=== PATIENT | male | born 1945 | race Caucasian/White ===

== ENCOUNTER 2024-10-26 21:18 | Inpatient (IN) | payer MEDICARE, SELFPAY ==
[2024-10-26] VITALS (8 sets, daily range): BP systolic 112–150; BP diastolic 46–69; PULSE 58–67; RESP 12–22; TEMP 36.4–36.7; O2SAT 95–99
--- NOTE | ~2024-10-26 | CT_ITS ---
CLINICAL HISTORY: Stroke Protocol Exam: CT head without intravenous contrast. Comparison: None. Findings: There is age-appropriate atrophy. The size and shape of the ventricular system is within normal limits for this degree of atrophy. Mild areas of low-attenuation are identified within the periventricular and deep white matter. Cummins-white differentiation is well preserved. No midline shift or mass effect. No intracranial hemorrhage. No calvarial fractures. Impression: No acute findings. Specifically, no hemorrhage or acute territorial infarct. This document has been electronically signed by: Scooter Sotelo MD on 10/26/2024 21:45:55
--- NOTE | ~2024-10-26 | MR_ITS ---
EXAMINATION: MR BRAIN WITHOUT CONTRAST CLINICAL INFORMATION: Acute CVA COMPARISON: CT brain performed 9:27 PM 10/26/2024. TECHNIQUE: MRI of the brain was obtained using routine sequences without contrast. FINDINGS: There is curvilinear restricted diffusion seen in the right luciana extending to right upper mid fibula with corresponding low signal on ADC map to suggest an acute ischemia. No additional areas of restricted diffusion seen. There is no magnetic susceptibility artifact seen to suspect hemorrhagic conversion. No magnetic susceptibility artifact seen to suspect any acute or chronic hemorrhagic products or calcium. There is scattered T2 FLAIR signal changes in the subcortical white matter both cerebral hemispheres without mass effect. The lateral ventricles are symmetrical in size and configuration and mildly enlarged. There is no extra-axial collection. Normal flow void signal seen in major cerebral vasculature. Bilateral paranasal sinuses and mastoid air cells are well-aerated. Optic globe, optic nerve and the periorbital soft tissues are normal. MR/MR head/brain wo con IMPRESSION: Acute nonhemorrhagic infarct right luciana extending to upper medulla oblongata. Chronic small vessel ischemic changes in the subcortical white matter of both cerebral hemispheres. Electronically signed by: Ulysses Garcia MD 10/27/2024 09:28 AM EST
--- NOTE | ~2024-10-26 | XR_ITS ---
CLINICAL HISTORY: Stroke Protocol 1 view chest x-ray Comparison: None Findings: The lungs are clear. Normal size heart. No acute fracture. IMPRESSION: 1. No acute findings. This document has been electronically signed by: Scooter Sotelo MD on 10/26/2024 23:12:56
--- NOTE | ~2024-10-26 | CT_ITS ---
CLINICAL HISTORY: Stroke Protocol Exam: 1. CT angiogram of the neck with intravenous contrast. 2. CT angiogram of the head with intravenous contrast. 3. CT head with intravenous contrast. Comparison: Noncontrast head CT from earlier today. Findings: CT angiogram neck: Bovine arch vascular variant anatomy. Visualized portion of the thoracic aorta is nonaneurysmal with minimal to mild vascular calcification. Dominant left vertebral artery. Both vertebral arteries are patent. However, the right vertebral artery is markedly diminutive along its far distal portion. No occlusive disease is seen. Common carotid arteries are patent. No flow-limiting stenosis within the proximal to mid internal carotid arteries. CT angiogram head: Basilar artery is patent. Appropriate contrast within the posterior cerebral arteries bilaterally. Distal internal carotid arteries are patent. Appropriate contrast within the middle cerebral arteries and anterior cerebral arteries bilaterally. No aneurysms. Miscellaneous findings: No enlarged lymph nodes. No air-fluid levels within the paranasal sinuses. Upper airway is patent. No apical pneumothorax. No acute fractures. CT head with intravenous contrast. No abnormal enhancement identified within the brain parenchyma. No leptomeningeal hyperenhancement. Dural venous sinuses are patent. Impression: 1. No large vessel occlusion or hemodynamically significant stenosis identified. 2. No abnormal enhancement within the brain parenchyma. This document has been electronically signed by: Scooter Sotelo MD on 10/26/2024 22:38:20
--- NOTE | 2024-10-26 21:22 | ED.NEUROSD ---
HPI - Neuro Symptoms/Deficit General Chief Complaint: Stroke Stated Complaint: stroke Time Seen by Provider: 10/26/24 21:22 Source: patient and EMS Mode of arrival: EMS Limitations: no limitations History of Present Illness ED Provider: HPI Narrative: Patient's history of diabetes, hypertension brought by EMS for been feeling balance since 19:00 fast test was negative per EMS around 19:00 patient was coming home and getting into the house was feeling off balance with slurred speech fed like words for rolling felt his left side is shaky and unsteady no headache no nausea no vomiting Related Data Allergies Allergy/AdvReac Type Severity Reaction Status Date / Time No Known Allergies Allergy Verified 10/26/24 21:49 Review of Systems Review of Systems: Yes all other systems are reviewed and are negative [facility] Past Medical History Medical History (Updated 10/27/24 @ 07:18 by Wilfrid Jett MD) Hyperlipidemia Diabetes mellitus Hypertension Social History Social History Smoked in Last 30 Days: No Use of substances other than those prescribed or required for medical reasons: No Advance Directives: No Advance Directives Information Provided: Yes Physical Exam Vital Signs: Vital Signs: Last Vital Signs Temp 97.6 F 10/27/24 05:31 Pulse 59 10/27/24 06:32 Resp 16 10/27/24 06:32 BP 101/44 L 10/27/24 06:32 Pulse Ox 97 10/27/24 06:32 O2 Del Method Room Air 10/27/24 06:32 BMI result Body Mass Index 30.0 Appearance: Alert. Oriented X3. No acute distress. Eyes: PERRLA, No Nystagmus ENT: Pharynx normal. Oral Mucosa moist Neck: Normal inspection. Neck supple. CVS: Normal heart rate and rhythm. Pulses normal. Respiratory: No respiratory distress. Equal air entry bilateral, no wheezing/rales/rhonchi Abdomen: Soft and nontender. Bowel sounds are present, no mass palpable, no CVA tenderness Skin: Skin warm and dry. Normal skin color. Normal skin turgor. Extremities: No lower extremity edema. No calf tenderness Neuro: Oriented X 3. No motor deficit. No sensory deficit. Intention tremor left arm , cranial nerves II-XII intact slow scanning speech Medications Administered Discontinued Medications Generic Name Dose Route Start Last Admin Trade Name Freq PRN Reason Stop Dose Admin Iohexol 85 ml 10/26/24 22:05 10/26/24 22:06 Iohexol 350 Mg/Ml 100 Ml Infus..Btl IV 10/26/24 22:06 85 ml ONCE ONE Administration Tenecteplase 20 mg 10/26/24 22:01 10/26/24 22:12 Tenecteplase 50 Mg/10 Ml Kit IVPUSH 10/26/24 22:02 20 mg ONCE ONE Administration Medical Decision Making Medical Decision Making [facility] Narrative: Patient with acute onset of been unsteady on his feet with scanning speech started at 19:00 CT head without contrast was negative for bleed CTA negative for LV 0 patient was started on TNK after discussion with Dr. Stovall for possible cerebellar stroke. No ICU bed available patient will stay in the ER till further evaluation by Dr. Stovall to downgrade to tele floor after 12 hours of TNK. No ICU bed available in [facility] patient has remained stable with stable vitals in the ER Patient is signed out to Dr. Mckeon for admission to tele floor after clearance by cutting Dr. Stovall Differential Diagnosis Differential Diagnoses: The differential diagnosis associated with the presentation includes CVA/TIAs /cerebellar stroke/posterior circulation stroke Admission/Observation Consideration of admission/observation: Escalation of care including admission/observation considered Consult Healthcare Provider Management of the patient was discussed with: Latex Caster Dr. stovall Lab Data [facility] Lab Attestation statement: I reviewed the patient's lab results. 10/26/24 22:02 10/26/24 22:02 Labs: Lab Results 10/26/24 10/26/24 Range/Units 21:21 22:02 WBC 6.7 (4.8-10.8) X10*3/uL RBC 4.33 L (4.60-5.80) X10*6/uL Hgb 13.0 L (14.0-18.0) g/dl Hct 37.6 L (42.0-52.0) % MCV 86.8 (80.0-98.0) fL MCH 30.0 (27.0-33.0) pg MCHC 34.6 (31.0-36.0) g/dl RDW 12.9 (11.0-16.0) % Plt Count 186 (160-400) X10*3/uL MPV 10.3 (9.4-12.4) fL Immature Gran % (Auto) 0.9 H (0.0-0.4) % Neut % (Auto) 63.3 (45-73) % Lymph % (Auto) 23.0 (20-40) % Glasscock % (Auto) 10.8 (2-11) % Eos % (Auto) 1.7 (0-4) % Baso % (Auto) 0.3 (0-2) % Lymph # (Auto) 1.5 (1.2-4.9) X10*3/uL Glasscock # (Auto) 0.7 (0.1-1.2) X10*3/uL Eos # (Auto) 0.1 (0.0-0.4) X10*3/uL Baso # (Auto) 0.0 (0.0-0.2) X10*3/uL Abs Immat Gran (auto) 0.06 H (0.00-0.03) X10*3/uL Absolute Neuts (auto) 4.2 (2.0-8.3) x10*3/uL Absolute Nucleated RBC 0.000 (0.0-0.012) X10*3/uL Nucleated RBC % (auto) 0.0 (0.0-0.2) /100WBC PT 11.3 (10.9-12.4) SEC INR 1.0 (0.9-1.1) APTT 31.1 (26.0-36.8) SEC Sodium 136 (135-145) mmol/L Potassium 4.3 (3.3-5.1) mmol/L Chloride 102 (96-108) mmol/L Carbon Dioxide 27 (22-29) mmol/L Anion Gap 11 L (12-20) BUN 31 H (9-16) mg/dL Creatinine 1.13 (0.5-1.4) mg/dL Estim Creat Clear Calc 53.0 Estimated GFR > 60 POC Glucose 279 H (60-115) mg/dL Random Glucose 260 H (60-115) mg/dL Calcium 9.0 (8.4-10.2) mg/dL Troponin I High Sens 4.7 (<3.5-35.0) ng/L Triglycerides 244 H (<150) mg/dL Cholesterol 209 H (<200) mg/dL LDL Cholesterol, Calc 121 H (<100) mg/dL HDL Cholesterol 40 L (>40) mg/dL Independent Interpretation I performed an independent interpretation of an: EKG and CT Scan Interpretation: Normal sinus rhythm left axis deviation right bundle-branch block LVH no acute ST-T no acute ischemia Radiology Impression Discussion of test interpretation with radiology: I have reviewed the radiologist's reading. Radiologist Impression: Close Chest X-Ray (Signed) Scooter Sotelo - 10/26/24 Head/Neck CTA (Signed) Scooter Sotelo - 10/26/[address] (Signed) Scooter Sotelo - 10/26/24 Launch?Image [address] [address] [address] Scan Report Signed Patient: Gee Cantrell MR#: [id number] : 1945 Acct:[id number] Age/Sex: 79 / M ADM Date: 10/26/24 Loc: .ED Attending Dr: Ordering Physician: Wilfrid Jett MD Date of Service: 10/26/24 Procedure(s): CT angio head neck STROKE Accession Number(s): [id number] cc: Wilfrid Jett MD~ Report Number: [id number]: Total DLP = 1616.00 mGy-cm CLINICAL HISTORY: Stroke Protocol Exam: 1. CT angiogram of the neck with intravenous contrast. 2. CT angiogram of the head with intravenous contrast. 3. CT head with intravenous contrast. Comparison: Noncontrast head CT from earlier today. Findings: CT angiogram neck: Bovine arch vascular variant anatomy. Visualized portion of the thoracic aorta is nonaneurysmal with minimal to mild vascular calcification. Dominant left vertebral artery. Both vertebral arteries are patent. However, the right vertebral artery is markedly diminutive along its far distal portion. No occlusive disease is seen. Common carotid arteries are patent. No flow-limiting stenosis within the proximal to mid internal carotid arteries. CT angiogram head: Basilar artery is patent. Appropriate contrast within the posterior cerebral arteries bilaterally. Distal internal carotid arteries are patent. Appropriate contrast within the middle cerebral arteries and anterior cerebral arteries bilaterally. No aneurysms. Miscellaneous findings: No enlarged lymph nodes. No air-fluid levels within the paranasal sinuses. Upper airway is patent. No apical pneumothorax. No acute fractures. CT head with intravenous contrast. No abnormal enhancement identified within the brain parenchyma. No leptomeningeal hyperenhancement. Dural venous sinuses are patent. Impression: 1. No large vessel occlusion or hemodynamically significant stenosis identified. 2. No abnormal enhancement within the brain parenchyma. This document has been electronically signed by: Scooter Sotelo MD on 10/26/2024 22:38:[address] [address] [address] Scan Report Signed with Addenda Patient: Gee Cantrell MR#: [id number] : 1945 Acct:[id number] Age/Sex: 79 / M ADM Date: 10/26/24 Loc: HO.ED Attending Dr: Ordering Physician: Wilfrid Jett MD Date of Service: 10/26/24 Procedure(s): CT head for STROKE Accession Number(s): [id number] cc: Wilfrid Jett MD~ Report Number: [id number]: Total DLP = 759.00 mGy-cm ADDENDUMThis document has been electronically signed by: Scooter Sotelo MD on 10/26/2024 21:45:55 ADDENDUM: This report was discussed with Wilfrid Jett on Oct 26, 2024 21:47:00 EST. This document has been electronically signed by: Elham Chacon on 10/26/2024 21:48:05 Addendum Dictated By: Scooter Sotelo MD Addendum Signed By: <Electronically signed by Scooter Sotelo MD in OV> 10/26/242148 Addendum Cosigned By: DD/ /19/2144 TD/TT: 10/26/2412/19/2147 CLINICAL HISTORY: Stroke Protocol Exam: CT head without intravenous contrast. Comparison: None. Findings: There is age-appropriate atrophy. The size and shape of the ventricular system is within normal limits for this degree of atrophy. Mild areas of low-attenuation are identified within the periventricular and deep white matter. Cummins-white differentiation is well preserved. No midline shift or mass effect. No intracranial hemorrhage. No calvarial fractures. Impression: No acute findings. Specifically, no hemorrhage or acute territorial infarct. This document has been electronically signed by: Scooter Sotelo MD on 10/26/2024 21:45:55 NIH Stroke Scale Internal: Initial- Upon Arrival Level of Consciousness: Alert Level of Consciousness Questions: Answers both questions correctly Level of Consciousness Commands: Performs both tasks correctly Best Gaze: Normal Visual: No visual loss Facial Palsy: Normal Motor Arm (Right): No drift Motor Arm (Left): No drift Motor Leg (Right): No drift Motor Leg (Left): No drift Limb Ataxia: Absent Sensory: Normal Best Language: No aphasia Dysarthia: Mild to moderate dysarthria Extinction and Inattention: No abnormality Score: 1 Critical Care Time Critical Care Time Critical Care Time: Yes Total Critical Care Time: 55 Attestation: The patient was critically ill with a high probability of imminent or life threatening deterioration. I spent greater than 60?minutes of discontinuous time evaluating the patient,delivering critical care at the bedside, discussing and evaluating pertinent data with consultants. Critical care time does not include time spent performing separately billable procedures or teaching. Total time spent performing critical care was 55???minutes. Discharge Plan Discharge Clinical Impression: Cerebrovascular accident Patient Disposition: Still a Patient Print Language: Mosotho
--- NOTE | 2024-10-26 21:23 | ECG_ITS ---
Test Reason : STROKE? Blood Pressure : / mmHG Vent. Rate : 066 BPM Atrial Rate : 066 BPM P-R Int : 224 ms QRS Dur : 148 ms QT Int : 428 ms P-R-T Axes : 059 -45 048 degrees QTc Int : 448 ms Sinus rhythm with 1st degree A-V block Left axis deviation Right bundle branch block Minimal voltage criteria for LVH, may be normal variant ( R in aVL ) Abnormal ECG No previous ECGs available Referred By: Wilfrid Jett Electronically Signed By:SHILA GARCIA MD
[2024-10-26 21:30] LABS: Glucose, Whole Blood 279 mg/dL (60-115)
--- NOTE | 2024-10-26 21:41 | MHC.EDTECH ---
EKG delayed due to patient being in CT scan
[2024-10-26] MEDS: iohexoL 350 MG/ML 100 ML INFUS..BTL 85 ML IV (22:06)
[2024-10-26 22:07] LABS: MANUAL DIFF FLAG NO
[2024-10-26 22:09] LABS: Basophils Percent Auto 0.3 % (0-2); Eosinophils Absolute Auto 0.1 X10*3/uL (0.0-0.4); Eosinophils Percent Auto 1.7 % (0-4); Hematocrit 37.6 % (42.0-52.0); Imm Gran Abs Auto 0.06 X10*3/uL (0.00-0.03); Imm Gran Pct Auto 0.9 % (0.0-0.4); Lymphocytes Absolute Auto 1.5 X10*3/uL (1.2-4.9); Mean Corpuscular HGB Conc 34.6 g/dl (31.0-36.0); Mean Corpuscular Volume 86.8 fL (80.0-98.0); Mean Platelet Volume 10.3 fL (9.4-12.4); Monocytes Absolute Auto 0.7 X10*3/uL (0.1-1.2); Monocytes Percent Auto 10.8 % (2-11); Neutrophils Absolute Auto 4.2 x10*3/uL (2.0-8.3); Neutrophils Percent Auto 63.3 % (45-73); Platelet Count 186 X10*3/uL (160-400); Red Blood Count 4.33 X10*6/uL (4.60-5.80); Red Cell Distribution Width 12.9 % (11.0-16.0); White Blood Count 6.7 X10*3/uL (4.8-10.8)
[2024-10-26] MEDS: Tenecteplase 50 MG/10 ML KIT 20 MG IVPUSH (22:12)
[2024-10-26 22:14] LABS: Prothrombin Time 11.3 SEC (10.9-12.4)
[2024-10-26 22:17] LABS: Partial Thromboplastin Time 31.1 SEC (26.0-36.8)
[2024-10-26 22:23] LABS: Anion Gap 11 (12-20); Blood Urea Nitrogen 31 mg/dL (9-16); Carbon Dioxide 27 mmol/L (22-29); Chloride 102 mmol/L (96-108); Cholesterol 209 mg/dL (<200); Estimated Glomerular Filt Rate > 60; Glucose Random 260 mg/dL (60-115); HDL Cholesterol 40 mg/dL (>40); LDL Cholesterol Calculated 121 mg/dL (<100); Potassium 4.3 mmol/L (3.3-5.1); Sodium 136 mmol/L (135-145); Triglycerides 244 mg/dL (<150)
[2024-10-26 22:25] LABS: Stroke Lab Use COMPLETE
[2024-10-26 22:29] LABS: Troponin-I High Sensitivity 4.7 ng/L (<3.5-35.0)
--- NOTE | 2024-10-26 23:56 | PC.NURSE ---
Pt biba from home with stroke alert. Pts LKW 10/26/2024 1900. Pt states he was walking down two steps when he suddenly felt unsteady, having trouble finding his words and felt like his words were rolling. Per pts he was not at his baseline. Upon EMS arrival pt was a&o x3, FAST test was negative and vital signs were 136/57, 67P, 18RR, 99% O2 RA, 350 POC. Pt received 100ml of NS during EMS transport. Pt denies any recent illness,traumas, headache, or nausea/vomitting. On arrival to the ED pts NIHSS score 1, BP 130/53, P 67, 15RR, 97 RA, 97.9F, 279 POC, GCS 15. Pt passed swallow eval, although he is complaining of a dry chronic cough that he has been having for 2-3 weeks (pt states he was recently started on lisinopril). Pt received 20mg of TNK. Pt has 18G field IV in LAC and 20G IV in RAC. Pt is a&o x3, able to make his needs known and using urinal/bedpan. is bedside. Imaging: Chest xray: IMPRESSION: 1. No acute findings head ct: Impression: No acute findings. Specifically, no hemorrhage or acute territorial infarct. head/neck cta: Impression: 1. No large vessel occlusion or hemodynamically significant stenosis identified. 2. No abnormal enhancement within the brain parenchyma.
[2024-10-27] VITALS (26 sets, daily range): BP systolic 101–137; BP diastolic 39–70; PULSE 55–66; RESP 14–21; TEMP 36.4–36.9; O2SAT 93–98; BMI 29.1
--- NOTE | 2024-10-27 05:56 | PC.NURSE ---
MRI form filled out and faxed over to MRI department. MRI form and fax confirmation in pt folder.
--- NOTE | 2024-10-27 07:23 | PC.NURSE ---
Pt alert and oriented this morning, having minimal word finding issues. Denies pain, SOB, CP. Reporting some weakness to left side, can move arm but having some slight weakness. Sinus ema on monitor
--- NOTE | 2024-10-27 07:55 | PC.NURSE ---
Pt was taken off unit to MRI
--- NOTE | 2024-10-27 11:51 | P.CNNE_ITS ---
History of Present Illness Data of Consult Service Date: 10/27/24 Primary Care Provider: Unknown Physician HPI Reason for consult: Stroke 79 years old man who was in usual state of health yesterday when he was walking and noted that he was unsteady. He was so unsteady that he dropped whenever he had in his hand thinking that he might fall down. He turned around went in in took a shower thinking that maybe he would get better. Symptoms did not improve. His speech was also affected like his tongue was curling up. Initially he resistant to come to emergency room but then called ambulance and was here and was diagnosed with acute ischemic stroke and appropriately treated with TNK. I saw him in emergency room. There was no complaint of nausea vomiting dizziness double vision and he was feeling much better now. Review of Systems 2 Review of Systems: No recent cold or flu-like illness PMFSH Past Medical History Medical History (Updated 10/27/24 @ 11:54 by Elizabeth Stovall MD) Hyperlipidemia Diabetes mellitus Hypertension Social History Social History Smoked in Last 30 Days: No Use of substances other than those prescribed or required for medical reasons: No Advance Directives: No Advance Directives Information Provided: Yes Meds Allergies Allergy/AdvReac Type Severity Reaction Status Date / Time No Known Allergies Allergy Verified 10/26/24 21:49 Active Medications: Current Medications Acetaminophen (Acetaminophen 325 Mg Tablet) 650 mg PO Q6H PRN PRN Reason: Pain, Mild 1-3,fever,headache Aspirin (Aspirin Enteric Coated 81 Mg Tablet.Dr) 81 mg PO Q24H CLAUDIO Atorvastatin Calcium (Atorvastatin Calcium 80 Mg Tablet) 80 mg PO BEDTIME CLAUDIO Calcium Carbonate (Calcium Carbonate 750 Mg Tab.Chew) 750 mg PO Q4H PRN PRN Reason: Heartburn Enoxaparin Sodium (Enoxaparin Sodium 40 Mg/0.4 Ml Syringe) 40 mg SUBCUT Q24H CLAUDIO Magnesium Hydroxide (Milk Of Magnesia 30 Ml Oral.Susp) 30 ml PO DAILY PRN PRN Reason: Constipation Melatonin (Melatonin 3 Mg Tablet) 6 mg PO BEDTIME PRN PRN Reason: Insomnia Sodium Chloride (0.9 % Sodium Chloride Flush 3 Ml Syringe) 3 ml IVFLUSH QSHIFT CLAUDIO Physical Exam 2 Vital Signs: Vital Signs: Last Vital Signs Temp 98.1 F 10/27/24 09:33 Pulse 60 10/27/24 11:42 Resp 18 10/27/24 11:42 BP 117/49 L 10/27/24 11:42 Pulse Ox 96 10/27/24 11:42 O2 Del Method Room Air 10/27/24 11:42 BMI result Body Mass Index 30.0 Neuro: Other: He is alert and awake with normal spontaneity of speech fluency comprehension and affect. Face is symmetrical. Visual rivero are full. There is no pronator drift. [id number] testing is normal. There is no focal weakness and arm or leg. Plantars are flexor. Results Labs 10/26/24 22:02 10/26/24 22:02 Labs: Short CBC 10/26/24 Range/Units 22:02 WBC 6.7 (4.8-10.8) X10*3/uL Hgb 13.0 L (14.0-18.0) g/dl Hct 37.6 L (42.0-52.0) % Plt Count 186 (160-400) X10*3/uL BMP 10/26/24 22:02 Sodium 136 Potassium 4.3 Chloride 102 Carbon Dioxide 27 BUN 31 H Creatinine 1.13 Calcium 9[address] did not reveal any significant abnormality. MRI of brain without contrast revealed mild hyperintensity in right side of luciana. Chronic microvascular ischemic changes were also noted. CTA of brain and neck did not reveal any significant abnormality. Assessment and Plan (1) Cerebrovascular accident: Qualifiers: CVA mechanism: unspecified Qualified Code(s): I63.9 - Cerebral infarction, unspecified Status: Acute 79 years old man with acute right pontine ischemic infarction appropriately treated with TNK. I believe most of the damage was averted. My recommendations are to start him on baby aspirin and clopidogrel 75 mg daily after 24 hours of TNK with statin and attention to blood pressure control. Cardiac monitoring should also be performed to rule out atrial fibrillation as he has multiple small bilateral ischemic lesions that could be embolic in nature. Procedures Date of Service Date of Service: 10/27/24
--- NOTE | 2024-10-27 11:51 | P.HPHOSP_ITS ---
History of Present Illness Date of Service: 10/27/24 Chief Complaint: Unsteady 79M PMH diabetes, hypertension, mood presented with sudden feeling of being off balanced at 19:00 on 10/26/2024. Also noted slurred speech and felt like he was going to fall. Did not notice 1 side we could then other specifically. was concerned for stroke so called EMS. In ED CT head negative CTA negative was given TNK at about 22:00. MRI showed acute nonhemorrhagic infarct of the right luciana extending to upper medulla oblongata. Was seen by Neurology who recommended 12 hour monitoring and ED and then admission to [facility] floor for q4 hour neuro checks. Review of Systems 2 Review of Systems: Yes all other systems are reviewed and are negative [facility] Medical History Hyperlipidemia Diabetes mellitus Hypertension Social History Smoked in Last 30 Days: No Use of substances other than those prescribed or required for medical reasons: No Advance Directives: No Advance Directives Information Provided: Yes [facility] Allergies Allergy/AdvReac Type Severity Reaction Status Date / Time No Known Allergies Allergy Verified 10/26/24 21:49 Active Medications: Current Medications Acetaminophen (Acetaminophen 325 Mg Tablet) 650 mg PO Q6H PRN PRN Reason: Pain, Mild 1-3,fever,headache Aspirin (Aspirin Enteric Coated 81 Mg Tablet.Dr) 81 mg PO Q24H CLAUDIO Atorvastatin Calcium (Atorvastatin Calcium 80 Mg Tablet) 80 mg PO BEDTIME CLAUDIO Calcium Carbonate (Calcium Carbonate 750 Mg Tab.Chew) 750 mg PO Q4H PRN PRN Reason: Heartburn Enoxaparin Sodium (Enoxaparin Sodium 40 Mg/0.4 Ml Syringe) 40 mg SUBCUT Q24H CLAUDIO Magnesium Hydroxide (Milk Of Magnesia 30 Ml Oral.Susp) 30 ml PO DAILY PRN PRN Reason: Constipation Melatonin (Melatonin 3 Mg Tablet) 6 mg PO BEDTIME PRN PRN Reason: Insomnia Sodium Chloride (0.9 % Sodium Chloride Flush 3 Ml Syringe) 3 ml IVFLUSH QSHIFT [facility] Physical Exam 2 Vital Signs and Narrative: Vital Signs: Last Vital Signs Temp 98.1 F 10/27/24 09:33 Pulse 60 10/27/24 11:42 Resp 18 10/27/24 11:42 BP 117/49 L 10/27/24 11:42 Pulse Ox 96 10/27/24 11:42 O2 Del Method Room Air 10/27/24 11:42 BMI result Body Mass Index 30.0 General: AO X 3, no acute distress Resp: CTA bilateral, no accessory muscles used CVS: S1,S2,RRR GI: soft, non tender, non distended Neuro: Mild left hemiparesis and left facial, mild dysarthria Psych: appropriate affect, appropriate insight Results Labs 10/26/24 22:02 10/26/24 22:02 Labs: Laboratory Results - last 24 hr 10/26/24 10/26/24 21:21 22:02 MCV 86.8 MCH 30.0 MCHC 34.6 RDW 12.9 Plt Count 186 MPV 10.3 Immature Gran % (Auto) 0.9 H Neut % (Auto) 63.3 Lymph % (Auto) 23.0 Morrill % (Auto) 10.8 Eos % (Auto) 1.7 Baso % (Auto) 0.3 Lymph # (Auto) 1.5 Morrill # (Auto) 0.7 Eos # (Auto) 0.1 Baso # (Auto) 0.0 Abs Immat Gran (auto) 0.06 H Absolute Neuts (auto) 4.2 Absolute Nucleated RBC 0.000 Nucleated RBC % (auto) 0.0 PT 11.3 INR 1.0 APTT 31.1 Anion Gap 11 L Estim Creat Clear Calc 53.0 Estimated GFR > 60 POC Glucose 279 H Random Glucose 260 H Calcium 9.0 Troponin I High Sens 4.7 Triglycerides 244 H Cholesterol 209 H LDL Cholesterol, Calc 121 H HDL Cholesterol 40 L Imaging Radiologist's Impressions: Impressions Brain MRI 10/27/24 08:00 IMPRESSION: Acute nonhemorrhagic infarct right luciana extending to upper medulla oblongata. Chronic small vessel ischemic changes in the subcortical white matter of both cerebral hemispheres. 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
--- NOTE | 2024-10-27 12:30 | PHA.MEDREC ---
Pharmacy Consult ? Medication Reconciliation Pharmacy has completed the medication reconciliation. Spoke to patient and confirmed medication list. Patient said he has been experiencing a chronic cough (tickles in the back of his throat) for about 2-3 weeks and think it may be due to the lisinopril. Message was relayed to Dr. Garcia. Last dose of medications was yesterday 10/26/24.
--- NOTE | 2024-10-27 13:00 | CA_ITS ---
Transthoracic Echocardiogram Patient (Last, First, Middle): Gee Cantrell, Gender: Male Date of : 1945 Age: 79 Procedure Date: 10/27/2024 Procedure Type: Transthoracic Echocardiogram Location: ER Height: 165.1 cm Weight: 81.65 kg BSA: 1.89 m2 Heart Rate: 60 bpm BP: 121 / 38 mmHg [place] Sander: TOMY Cerda MD: Rosalio Garcia MD Telephone Supervisor: Alexander Diggs MD Symptoms: stroke Study Quality: Fair ECG Rhythm: Sinus Conclusions: - 1. Hyperdynamic LV EF of greater than 70% 2. Mild calcific changes noted on the aortic valve with normal cardiac valvular Doppler 3. Mildly dilated ascending aorta at 3.8 cm 4. No gross pericardial effusion Findings Left Ventricle Normal left ventricular cavity size. There is normal left ventricular wall thickness. The left ventricular systolic function is hyperdynamic. The visually estimated ejection fraction is >70%. Spectral Doppler is indicative of an impaired relaxation filling pattern. Right Ventricle Normal right ventricular cavity size and systolic function. Atria The left atrium is normal in size. Interatrial shunt cannot be excluded. The right atrium was not well visualized. Aortic Valve There is mild calcification of the aortic valve. There is no aortic valve stenosis. There is mild aortic valve regurgitation. Mitral Valve The mitral valve was not well visualized. There is trace mitral valve regurgitation. There is no mitral valve stenosis. Pulmonic Valve The pulmonic valve was not well visualized. Tricuspid Valve Likely normal tricuspid valve structure and function. Tricuspid regurgitation envelope is inadequate for calculation of right ventricular systolic pressure. Normal right atrial pressure. Great Vessels The aorta was not well visualized. The pulmonary artery was not well visualized. There is mild dilatation of the ascending aorta measuring 3.80 cm. Venous The inferior vena cava is normal in size. Pericardium/Pleural There is no evidence of pericardial effusion. Prior Study Comparison No prior study available for comparison. Measurements 2D Linear Measurements IVSd: 0.80 0.6-0.9/0.6-1.0 cm LVIDd: 4.17 3.9-5.3/4.2-5.9 cm LVIDd Index: 2.21 2.4-3.2/2.2-3.1 cm/m2 LVIDs: 2.14 2.0-3.6 cm LVPWd: 0.94 0.7-1.1 cm LA Diam: 3.00 2.7-3.8/3.0-4.0 cm LAIDs Index: 1.59 1.5-2.3 cm/m2 LV Mass: 139.16 67-162/88-224 g LV Mass Index: 73.63 43-95/49-115 g/m2 LVOT Diam: 2.10 3.0+(-)1.3 cm 2D Systolic Function EF 4C: 74.90 >55% EF 2C: 71.40 >55% EF BiP: 73.40 >55% Mitral Valve MV Pk E: 0.57 MV PK A: 0.68 MV Decel Time: 279.00 E/A: 0.80 E'Lateral: 9.68 E'Medial: 6.42 E/E' Med: 8.80 E/E' Lat: 5.80 PHT: 82.00 MVA PHT: 2.68 Decel [place]: 2.03 Aortic Valve AoV Pk Frank[place]: 1.38 AoV Mn Frank[place]: 0.98 AoV VTI: 0.28 AoV Pk Grad: 8.00 Aov Mn Grad: 4.00 DORA Cont.VTI: 2.02 LVOT LVOT Pk [place]: 0.86 LVOT Mn [place]: 0.59 LVOT VTI: 0.16 LVOT Pk Grad: 3.00 LVOT Mn Grad: 2.00 LVOT Diam: 2.10 LVOT Area: 3.46 Diastolic Function MV Pk E: 0.57 MV Pk A: 0.68 E/A: 0.80 E'Medial: 6.42 E/E' Med: 8.80 E' Laterial: 9.68 E/E' Lat: 5.80 Right Ventricle TAPSE (mm): 18.40 TVS' Franklyn: 9.25 Tricuspid Valve RA Press: 3.00 Great Vessels Aorta Sinus of Valsalva: 3.50 2.0-3.5 cm Ao Asc: 3.80 2.1-3.4 cm Pulmonary Valve PV Pk Franklyn: 1.00 Peak PV Grad: 4.00 Updated in Other Vendor System with Status of Final Alexander Diggs MD electronically signed on 10/27/2024 2:39:47 PM with status of Final
[2024-10-27 13:18] LABS: Glucose, Whole Blood 194 mg/dL (60-115)
[2024-10-27 14:28] LABS: Prothrombin Time Whole Bld POC 12.2 sec (11.1-13.5)
--- NOTE | 2024-10-27 15:17 | MHC.SP.ADU ---
Referring provider: Rosalio Garcia MD Reason for Referral: R-CVA Type of Treatment: 33545 Clinical Swallowing Evaluation Date of Plan of Treatment: 10/27/24 Onset of Symptoms/Illness: 10/26/24 Date Treatment Started: 10/27/24 Medical Diagnosis: CVA Primary Speech Language Diagnosis: R13.12 Oropharyngeal Phase Dysphagia History Pt is a 79 year-old Male who experience loss of balance and slurred speech around 19:00. He was in the ED and received TNK at 22:00 with rapid improvement. He continues to endorse mildly slurred speech and that, my left leg feels shorter that my right leg. Medical History: Other: HLD DM2 HTN Medication List: Recent Hospitalizations: No Respiratory Needs: Room Air Patient Orientation: Alert & Oriented x 4 Social History: Employment Status: Retired Highest level of education obtained: Current Living Situation: Home with and Child Assistive Devices in use: Comment: Past Speech Language Therapy: None Other Therapies Seen in Current Calendar Year: None Other: Swallowing History: Dysphagia Specific: Within Functional Limits Comments: Pre-eval Risk for Aspiration: None Pre-evaluation Dietary Consistencies: Regular Pre-eval Liquid Intake: Thin Pre-eval Medication Intake: Whole with Liquid Reported Speech, Language, Cognition difficulties: Comments: Quality of Life: Patient Stated Goal of Speech-Language Therapy: Assessment Speech Production: Within Functional Limits Clinical Impression: Intact Observations: Follow-up for disposition recommendations. Informal Voice Assessment: Voice Loudness: Normal Voice Nasal Resonance: Voice Oral Resonance: Voice Phonatory-based Quality: Normal Voice Pitch: Normal Voice Other Observations: Clinical Impression: Intact Clinicial Observations: Tests of Speech & Lang Adults: Clinical Impression: Did Not Test Observations: Tests of Cognition: Clinical Impression: Did Not Test Observations: Augmentative and Alternative Communication: Did Not Test Observations: Impressions and Recommendations Summary: Impact on Daily Function/Activity Limitations: Daily Activities: None Interpersonal Interactions: None Education: None Employment: None Community: None Prognosis for Improvement: Excellent Comment: Recommendation for Speech Therapy: NA:Typical Evaluation Frequency/Duration: Date Range for Service Requested: Time to Reassess: PRN Correction Goals: Short Term Goals: Goal # : STG1: On going diagnostic treatment during inpatient stay. Goal Status: New Goal Recommended Referrals to be Discussed with Primary Care Provider: Neurology Patient Education: Completed: Yes Patient/Caregiver Education: Patient expressed understanding of evaluation Patient agrees with goals and treatment plan Patient understands results but refuses treatment Family/Caregivers expressed understanding of results Family/Caregivers expressed agreement with goals and treatment plan Caustic Preparer Clinican/Clinical Fellow: No Supervisory Statement: N/A Speech Language Pathologist: Husam Ferreira M.A., [facility]3]-FUNERAL HOME ASSOCIATE
[2024-10-27 17:33] LABS: Glucose, Whole Blood 231 mg/dL (60-115)
[2024-10-27] MEDS: 0.9 % Sodium Chloride Flush 3 ML SYRINGE IVFLUSH ×2 (17:38→22:33)
[2024-10-27] MEDS: Insulin Lispro 100 UNIT/ML 3 ML VIAL SUBCUT ×2 (17:38→20:32)
[2024-10-27 20:30] LABS: Glucose, Whole Blood 176 mg/dL (60-115)
[2024-10-27] MEDS: Atorvastatin Calcium 80 MG TABLET PO (20:33)
[2024-10-27] MEDS: Enoxaparin Sodium 40 MG/0.4 ML SYRINGE SUBCUT (22:29)
[2024-10-27] MEDS: Aspirin Enteric Coated 81 MG TABLET.DR PO (22:30)
[2024-10-28 03:40] VITALS: BP 136/68; PULSE 60; RESP 18; TEMP 36.3; O2SAT 95
[2024-10-28 06:23] LABS: Hematocrit 41.1 % (42.0-52.0); Hemoglobin 13.7 g/dl (14.0-18.0); Mean Corpuscular HGB Conc 33.3 g/dl (31.0-36.0); Mean Corpuscular Hemoglobin 29.4 pg (27.0-33.0); Mean Corpuscular Volume 88.2 fL (80.0-98.0); Mean Platelet Volume 10.7 fL (9.4-12.4); Platelet Count 185 X10*3/uL (160-400); Red Blood Count 4.66 X10*6/uL (4.60-5.80); Red Cell Distribution Width 13.1 % (11.0-16.0); White Blood Count 7.8 X10*3/uL (4.8-10.8)
[2024-10-28 06:37] LABS: Anion Gap 15 (12-20); Blood Urea Nitrogen 27 mg/dL (9-16); Calcium 9.2 mg/dL (8.4-10.2); Carbon Dioxide 24 mmol/L (22-29); Chloride 107 mmol/L (96-108); Creatinine Clr Calc Pharmacy 55.7; Estimated Glomerular Filt Rate > 60; Glucose Random 209 mg/dL (60-115); Potassium 3.8 mmol/L (3.3-5.1); Sodium 142 mmol/L (135-145)
[2024-10-28 07:20] LABS: Glucose, Whole Blood 201 mg/dL (60-115)
[2024-10-28 07:25] VITALS: BP 124/66; PULSE 58; RESP 14; TEMP 36.9; O2SAT 96
[2024-10-28] MEDS: Cholecalciferol (Vitamin D3) 25 MCG TABLET PO (09:02)
[2024-10-28] MEDS: Insulin Lispro 100 UNIT/ML 3 ML VIAL SUBCUT ×2 (09:02→13:04)
[2024-10-28] MEDS: Clopidogrel Bisulfate 75 MG TABLET PO (09:02)
[2024-10-28] MEDS: PARoxetine HCL 20 MG TABLET PO (09:02)
[2024-10-28] MEDS: 0.9 % Sodium Chloride Flush 3 ML SYRINGE IVFLUSH (09:03)
--- NOTE | 2024-10-28 09:54 | HO.PM.IMPN ---
Subjective Subjective Date of Service: 10/28/24 Interval History: some ataxia, dysarthria Physical Exam Vital Signs: Vital Signs: Last Vital Signs Temp 98.4 F 10/28/24 07:25 Pulse 58 10/28/24 07:25 Resp 14 10/28/24 07:25 BP 124/66 10/28/24 07:25 Pulse Ox 96 10/28/24 07:25 O2 Del Method Room Air 10/28/24 07:25 BMI result Body Mass Index 29.1 Neuro: Other: He is alert and awake with normal spontaneity of speech fluency comprehension and affect. Face is symmetrical. Visual rivero are full. There is no pronator drift. Bfnkgj-vi-[id number] testing is normal. There is no focal weakness and arm or leg. Plantars are flexor. Objective Data Active Medications Acetaminophen (Acetaminophen 325 Mg Tablet) 650 mg PO Q6H PRN PRN Reason: Pain, Mild 1-3,fever,headache Aspirin (Aspirin Enteric Coated 81 Mg Tablet.) 81 mg PO Q24H [facility] Last Admin: 10/27/24 22:30 Dose: 81 mg Documented By: ADA Atorvastatin Calcium (Atorvastatin Calcium 80 Mg Tablet) 80 mg PO BEDTIME [facility] Last Admin: 10/27/24 20:33 Dose: 80 mg Documented By: ADA Calcium Carbonate (Calcium Carbonate 750 Mg Tab.Chew) 750 mg PO Q4H PRN PRN Reason: Heartburn Clopidogrel Bisulfate (Clopidogrel Bisulfate 75 Mg Tablet) 75 mg PO DAILY [facility] Last Admin: 10/28/24 09:02 Dose: 75 mg Documented By: AGUEDA Enoxaparin Sodium (Enoxaparin Sodium 40 Mg/0.4 Ml Syringe) 40 mg SUBCUT Q24H [facility] Last Admin: 10/27/24 22:29 Dose: 40 mg Documented By: ADA Glucose (Glucose Gel 15 Gm Gel..Gram.) 15 gm PO Q15M PRN; Protocol PRN Reason: per Hypoglycemia Standing Ord. Dextrose (D10) 250 mls @ 750 mls/hr IV Q15M PRN; Protocol PRN Reason: per Hypoglycemia Standing Ord. Insulin Human Lispro (Insulin Lispro 100 Unit/Ml 3 Ml Vial) 0 unit SUBCUT QIDACHS [facility]; Protocol Last Admin: 10/28/24 09:02 Dose: 4 unit Documented By: AGUEDA Magnesium Hydroxide (Milk Of Magnesia 30 Ml Oral.Susp) 30 ml PO DAILY PRN PRN Reason: Constipation Melatonin (Melatonin 3 Mg Tablet) 6 mg PO BEDTIME PRN PRN Reason: Insomnia Paroxetine HCl (Paroxetine Hcl 20 Mg Tablet) 20 mg PO DAILY [facility] Last Admin: 10/28/24 09:02 Dose: 20 mg Documented By: AGUEDA Sodium Chloride (0.9 % Sodium Chloride Flush 3 Ml Syringe) 3 ml IVFLUSH QSHIFT [facility] Last Admin: 10/28/24 09:03 Dose: 3 ml Documented By: AGUEDA Vitamin D (Cholecalciferol (Vitamin D3) 25 Mcg Tablet) 25 mcg PO DAILY [facility] Last Admin: 10/28/24 09:02 Dose: 25 mcg Documented By: AGUEDA Labs 10/28/24 05:48 10/28/24 05:48 Labs: Laboratory Results - last 24 hr 10/26/24 10/27/24 10/27/24 21:23 13:13 17:25 MCV MCH MCHC RDW Plt Count MPV Absolute Nucleated RBC Nucleated RBC % (auto) Whole Blood PT 12.2 Whole Blood INR 1.0 Anion Gap Estim Creat Clear Calc Estimated GFR POC Glucose 194 H 231 H Random Glucose Calcium 10/27/24 10/28/24 10/28/24 20:26 05:48 07:15 MCV 88.2 MCH 29.4 MCHC 33.3 RDW 13.1 Plt Count 185 MPV 10.7 Absolute Nucleated RBC 0.000 Nucleated RBC % (auto) 0.0 Whole Blood PT Whole Blood INR Anion Gap 15 Estim Creat Clear Calc 55.7 Estimated GFR > 60 POC Glucose 176 H 201 H Random Glucose 209 H Calcium 9.2 Assessment and Plan (1) Cerebrovascular accident: Status: Acute Plan 9M PMH diabetes, hypertension, mood presented with sudden feeling of being off balanced Acute CVA Status post TNK 22:00 on 10/26/2024 neuro appreciated - continue DAPL, statin, will likely need outpatient loop/holter to rule out afib echo unremarkable PT/OT recommending acute rehab prostate ca outpatient follow up dm insulin htn permissive htn mood disorder paxil dvt prophylaxis - lovenox full code reason for continued hospitalization:awaiting rehab Quality Stroke Does the patient have a stroke diagnosis?: Yes Reason for No Anti-thrombotic by Day Two: N/A - Med Ordered VTE Prior VTE?: No VTE Risk Level:: Medical - moderate - high VTE Device Contraindication: Treatment Not Indicated VTE Drug Contraindication: N/A - Med Ordered
[2024-10-28 11:23] VITALS: BP 140/64; PULSE 71; RESP 16; TEMP 37.6; O2SAT 96
[2024-10-28 11:30] LABS: Glucose, Whole Blood 236 mg/dL (60-115)
--- NOTE | 2024-10-28 12:00 | MHC.CM.PN ---
Addendum entered by Vilma Pennington 10/28/24 13:18: [facility] HAS OFFERED A BED PT AND FAMILY AWARE PT WILL DC TODAY AT 1500 HOURS VIA [facility] Original Note: PT REPORTS HE LIVES WITH HIS AND IS INDEPENDENT WITH CARE HE HAS NO DME AND NO SERVICES COPY OF HCP REQUESTED PCP AT [facility] IN [place] IMM DELIVERED DCP: ACUTE REHAB, [facility] IS PREFERRED PER PTS REPORT REFERRALS OUT
--- NOTE | 2024-10-28 13:05 | PM.DS ---
DS: Providers Provider Date of Service: 10/28/24 Date of admission: 10/27/24 11:52 Date of discharge: 10/28/24 Primary care physician: Unknown Physician Consults: 10/27/24 05:54 Consult to Neurology Stat Consulting Provider: [facility] Reason for consultation: cva Has provider been notified: Yes DS: Diagnosis Discharge Diagnosis (1) Cerebrovascular accident: Status: Acute DS: Summary Hospital Course Hospital Course: from initial hpi: 79M PMH diabetes, hypertension, mood presented with sudden feeling of being off balanced at 19:00 on 10/26/2024. Also noted slurred speech and felt like he was going to fall. Did not notice 1 side we could then other specifically. was concerned for stroke so called EMS. In ED CT head negative CTA negative was given TNK at about 22:00. MRI showed acute nonhemorrhagic infarct of the right luciana extending to upper medulla oblongata. Was seen by Neurology who recommended 12 hour monitoring and ED and then admission to [facility] floor for q4 hour neuro checks. hospital course: Patient was admitted for acute CVA. He received TNK. Was monitored for over 24 hours. Symptoms improved but still has some ataxia and dysarthria. He was seen by neurology recommended dual antiplatelet, statin, outpatient follow up for loop/Holter to rule out underlying AFib, did not have any AFib on telemetry. Echo was unremarkable. Was seen by PT and OT who recommended acute rehab to which patient will be discharged. For prostate cancer we will follow up outpatient. For diabetes was treated with insulin and will be started on metformin on discharge. For hypertension blood pressure medications were held for permissive hypertension but will restarted on discharge. For mood disorder was continued on Paxil. Time Attestation Discharge Coordination Time (in mins): 36 Quality: Safe Use of Opioids Does Pt have an Active Cancer Diagnosis on the Problem List?: No Quality: Stroke Does the patient have a stroke diagnosis?: Yes Reason for No Anti-thrombotic at DC: N/A - Med Ordered Reason for No Anticoagulant at DC: Drug treatment not indicated Reason Not Initiating IV-Tpa: N/A - Med Ordered Reason for No Anti-thrombotic by Day Two: N/A - Med Ordered Reason for No Statin at DC: N/A - Med Ordered Physical Exam Vital Signs: Vital Signs: Last Vital Signs Temp 99.7 F 10/28/24 11:23 Pulse 71 10/28/24 11:23 Resp 16 10/28/24 11:23 BP 140/64 H 10/28/24 11:23 Pulse Ox 96 10/28/24 11:23 O2 Del Method Room Air 10/28/24 11:23 BMI result Body Mass Index 29.1 Neuro: Other: He is alert and awake with normal spontaneity of speech fluency comprehension and affect. Face is symmetrical. Visual rivero are full. There is no pronator drift. Peyytv-mk-qbzv testing is normal. There is no focal weakness and arm or leg. Plantars are flexor. DS: Data Data Completed and Pending Labs on day of discharge: Laboratory Results - last 24 hr 10/26/24 10/27/24 10/27/24 21:23 13:13 17:25 WBC RBC Hgb Hct MCV MCH MCHC RDW Plt Count MPV Absolute Nucleated RBC Nucleated RBC % (auto) Whole Blood PT 12.2 Whole Blood INR 1.0 Sodium Potassium Chloride Carbon Dioxide Anion Gap BUN Creatinine Estim Creat Clear Calc Estimated GFR POC Glucose 194 H 231 H Random Glucose Calcium 10/27/24 10/28/24 10/28/24 20:26 05:48 07:15 WBC 7.8 RBC 4.66 Hgb 13.7 L Hct 41.1 L MCV 88.2 MCH 29.4 MCHC 33.3 RDW 13.1 Plt Count 185 MPV 10.7 Absolute Nucleated RBC 0.000 Nucleated RBC % (auto) 0.0 Whole Blood PT Whole Blood INR Sodium 142 Potassium 3.8 Chloride 107 Carbon Dioxide 24 Anion Gap 15 BUN 27 H Creatinine 1.06 Estim Creat Clear Calc 55.7 Estimated GFR > 60 POC Glucose 176 H 201 H Random Glucose 209 H Calcium 9.2 10/28/24 11:21 WBC RBC Hgb Hct MCV MCH MCHC RDW Plt Count MPV Absolute Nucleated RBC Nucleated RBC % (auto) Whole Blood PT Whole Blood INR Sodium Potassium Chloride Carbon Dioxide Anion Gap BUN Creatinine Estim Creat Clear Calc Estimated GFR POC Glucose 236 H Random Glucose Calcium Discharge Plan Discharge Anticipated Discharge Date/Time: 10/28/24 13:02 Patient Disposition: Xfer Inpatient Rehab Fac Discharge Diagnosis: cva Referrals: Elizabeth Stovall MD [Physician] - 1 Week Physician,Unknown J [Primary Care Provider] - 1 Week Discharge Medications: New atorvastatin 80 mg Tablet 80 mg PO BEDTIME Qty: 0 0RF clopidogrel 75 mg Tablet 75 mg PO DAILY Qty: 0 0RF aspirin 81 mg Tablet,Delayed Release (Dr/Ec) 81 mg PO Q24H Qty: 0 0RF metformin 500 mg tablet 500 mg PO BID Qty: 180 0RF Continued lisinopril 20 mg tablet 20 mg PO DAILY chlorthalidone 25 mg tablet 25 mg PO DAILY paroxetine HCl 20 mg tablet 20 mg PO DAILY cholecalciferol (vitamin D3) [Vitamin D3] 25 mcg (1,000 unit) Tablet 25 mcg PO DAILY Discharge Orders: Discharge Order (Routine); Ordered 10/28/24 Ordered By: Rosalio Garcia Diet: Diabetic diet Activity on Discharge: As tolerated Stand Alone Forms: Patient Portal Discharge page Print Language: Turkish Care Plan Goals: recovery, prevent strokes Health Concerns: cva Plan of Treatment: asa, plavix, statin rehab outpatient follow up for loop/holter Assessment: see above
[2024-10-28 13:21] LABS: Estimated Average Glucose 217 mg/dL; Hemoglobin A1C 276.3195 umol/L; Hemoglobin A1c % 9.2 % (<6.0); Total Hemoglobin (HGBA1C) 3571.4735 umol/L
--- NOTE | 2024-10-28 15:29 | PC.NURSE ---
Attempted to call report to [facility],I was transferred to receiving unit, phone continued to ring for several minutes unanswered
== END 2024-10-28 15:26 | DRG 63 ==
LOC: HO.ED 10-27 07:18 → HO.EDOVER 10-27 11:52 → HO.IMC 10-27 17:30
PROVIDERS: Admitting Provider Internal Medicine; Emergency Provider Internal Medicine; Visit Provider Internal Medicine
DX: I63.9 Cerebral infarction, unspecified (principal); R47.81 Slurred speech; E11.9 Type 2 diabetes mellitus without complications; I10 Essential (primary) hypertension; C61 Malignant neoplasm of prostate; R29.701 NIHSS score 1; F39 Unspecified mood [affective] disorder; Z79.899 Other long term (current) drug therapy
CPT/HCPCS: 36415; 70450; 70496; 70498; 70551; 71045; 80048; 80061; 82947; 83036; 84484; 85025; 85027; 85610; 85730; 93005; 93306; 97162; 97166; 99285; J1650; J3101; Q9957; Q9967

== ENCOUNTER → 2024-10-26 21:23 | Outpatient (BNV) | payer BC, SELFPAY | PROVIDERS: Emergency Provider Internal Medicine; Visit Provider Radiology Diagnostic Radiology | DX: I63.9 Cerebral infarction, unspecified (principal) | CPT/HCPCS: 70450; 70496; 71045 ==

== ENCOUNTER → 2024-10-26 21:23 | Outpatient (BNV) | payer BC, SELFPAY | PROVIDERS: Emergency Provider Internal Medicine; Visit Provider Internal Medicine Cardiovascular Disease | DX: R94.31 Abnormal electrocardiogram [ECG] [EKG] (principal) | CPT/HCPCS: 93010 ==

== ENCOUNTER → 2024-10-27 05:03 | Outpatient (BNV) | payer BC, SELFPAY | PROVIDERS: Emergency Provider Internal Medicine; Visit Provider Radiology Diagnostic Radiology | DX: I63.9 Cerebral infarction, unspecified (principal) | CPT/HCPCS: 70551 ==

== ENCOUNTER 2024-10-27 11:52 | Outpatient (BNV) | payer BC, SELFPAY | END 2024-10-27 13:00 | PROVIDERS: Admitting Provider Internal Medicine; Emergency Provider Internal Medicine; Visit Provider Internal Medicine Cardiovascular Disease | DX: I35.1 Nonrheumatic aortic (valve) insufficiency (principal); I35.8 Other nonrheumatic aortic valve disorders; R93.1 Abnormal findings on diagnostic imaging of heart and coronary circulation | CPT/HCPCS: 93306 ==

== ENCOUNTER → 2024-10-27 11:52 | Outpatient (BNV) | payer BC, SELFPAY | PROVIDERS: Admitting Provider Internal Medicine; Emergency Provider Internal Medicine; Visit Provider Psychiatry & Neurology Neurology | DX: I63.531 Cerebral infarction due to unspecified occlusion or stenosis of right posterior cerebral artery (principal) | CPT/HCPCS: 99223 ==

== ENCOUNTER → 2024-10-27 11:52 | Outpatient (BNV) | payer BC, SELFPAY | PROVIDERS: Admitting Provider Internal Medicine; Emergency Provider Internal Medicine; Visit Provider Internal Medicine | DX: I63.9 Cerebral infarction, unspecified (principal) | CPT/HCPCS: 99223; 99239; 99499 ==